=== PATIENT | female | born 1975 | race African-American/Black ===

== ENCOUNTER 2019-12-30 10:26 | Emergency (ER) | payer MEDICAID, OTHER ==
[~2019-12-30] VITALS: Ht 167.6 cm; Wt 89.0 kg
[~2019-12-30 10:26] MED LIST: ARIP20TA2
[2019-12-30 10:27] VITALS: BP 142/80
== END 2019-12-30 11:30 | disposition home or self-care (01) ==
LOC: ER 10:26
DX: Z76.0 Encounter for issue of repeat prescription (principal); F20.9 Schizophrenia, unspecified; F31.9 Bipolar disorder, unspecified
CPT/HCPCS: 99283

== ENCOUNTER 2020-02-13 14:14 | Emergency (ER) | payer MEDICAID, OTHER ==
[~2020-02-13] VITALS: Ht 165.1 cm; Wt 88.9 kg
[2020-02-13 14:23] VITALS: BP 133/80
[2020-02-13] MEDS ORDERED: CEFTRIAXONE SODIUM 250 MG/VIAL IM ONE (14:45)
[2020-02-13] MEDS ORDERED: AZITHROMYCIN 500 MG TABLET PO ONE (14:45)
[2020-02-13] MEDS ORDERED: LIDOCAINE HCL 1% 20ML VIAL (Pyxis) INJ INFIL ONE (15:15)
[2020-02-13 15:51] LABS: CLARITY URINE CLEAR (CLEAR); COLOR URINE YELLOW (YELLOW); KETONES URINE NEGATIVE (NEGATIVE); LEUKOCYTE ESTERASE URINE NEGATIVE (NEGATIVE); NITRITE URINE NEGATIVE (NEGATIVE); OCCULT BLOOD URINE NEGATIVE (NEGATIVE); PROTEIN URINE NEGATIVE (NEGATIVE); SPECIFIC GRAVITY URINE 1.037 (1.005-1.030)
[2020-02-19 04:07] LABS: NEISSERIA GONORRHOEAE NAA Negative (Negative)
== END 2020-02-13 16:12 | disposition left against medical advice (07) ==
LOC: ER 14:14
DX: N89.8 Other specified noninflammatory disorders of vagina (principal); R30.0 Dysuria
CPT/HCPCS: 81003; 87210; 87491; 87591; 96372; 99284; J0696; J3490

== ENCOUNTER 2021-01-21 16:21 | Emergency (ER) | payer OTHER ==
[~2021-01-21] VITALS: Ht 162.6 cm; Wt 102.0 kg
[2021-01-21 17:35] VITALS: BP 125/66
== END 2021-01-21 17:36 | disposition home or self-care (01) ==
LOC: ER 16:21
DX: F41.8 Other specified anxiety disorders (principal); F31.30 Bipolar disorder, current episode depressed, mild or moderate severity, unspecified; F43.0 Acute stress reaction; Z59.0 Homelessness
CPT/HCPCS: 99281